=== PATIENT | male | born 1985 | race Caucasian/White ===

== ENCOUNTER 2021-04-03 11:20 | Emergency (ER) | payer OTHER | END 2021-04-03 15:00 | disposition home or self-care (01) | LOC: ER1 11:20 | DX: S06.0X0A Concussion without loss of consciousness, initial encounter (principal); S13.9XXA Sprain of joints and ligaments of unspecified parts of neck, initial encounter; W22.8XXA Striking against or struck by other objects, initial encounter | CPT/HCPCS: 70450; 72125; 99283 ==

== ENCOUNTER 2021-07-15 13:46 | Emergency (ER) | payer OTHER ==
[2021-07-15 14:36] LABS: HEMOGLOBIN 16.1 gm/dl (14.0-17.5); RED BLOOD COUNT 5.23 M/UL (4.20-5.50); WHITE BLOOD COUNT 9.1 K/UL (4.5-11.0)
[2021-07-15 15:02] LABS: BUN/CREATININE RATIO 13 (0-10)
[2021-07-15] MEDS ORDERED: AUGMENTIN 875-1 EACH PO (15:38)
== END 2021-07-15 17:00 | disposition home or self-care (01) ==
LOC: ER1 13:46
PROVIDERS: Emergency Medicine
DX: K57.32 Diverticulitis of large intestine without perforation or abscess without bleeding (principal); Z87.442 Personal history of urinary calculi
CPT/HCPCS: 80053; 81001; 83690; 85025; 96374; 96375; 99284; J1335; J2270; J2405

== ENCOUNTER 2021-10-06 15:53 | Emergency (ER) | payer OTHER ==
[~2021-10-06 15:53] MED LIST: AUGMENTIN 875-1 EACH PO
== END 2021-10-06 18:33 | disposition left against medical advice (07) ==
LOC: ER1 15:53
DX: Z53.21 Procedure and treatment not carried out due to patient leaving prior to being seen by health care provider (principal)

== ENCOUNTER 2021-10-07 09:38 | Emergency (ER) | payer OTHER | END 2021-10-07 11:26 | disposition left against medical advice (07) | LOC: ER1 09:38 | DX: Z53.21 Procedure and treatment not carried out due to patient leaving prior to being seen by health care provider (principal) ==